=== PATIENT | female | born 1960 | race Two or more races ===

== ENCOUNTER 2021-12-23 18:33 | Emergency (ER) | payer OTHER ==
[~2021-12-23] VITALS: Ht 170.2 cm; Wt 77.1 kg
[2021-12-23] MEDS ORDERED: LIPITOR40 M1 (19:00)
== END 2021-12-23 20:21 | disposition home or self-care (01) ==
LOC: ER 18:33
DX: M70.31 Other bursitis of elbow, right elbow (principal)

== ENCOUNTER 2022-09-02 10:47 | Outpatient (CLI) | payer OTHER ==
[~2022-09-02 10:47] MED LIST: LIPITOR40 M1
== END 2022-09-02 10:49 | disposition home or self-care (01) ==
LOC: LAB 10:47
PROVIDERS: ATTEND Obstetrics & Gynecology
DX: Z01.419 Encounter for gynecological examination (general) (routine) without abnormal findings (principal); Z71.7 Human immunodeficiency virus [HIV] counseling; R30.0 Dysuria; R35.0 Frequency of micturition; N95.2 Postmenopausal atrophic vaginitis; Z12.11 Encounter for screening for malignant neoplasm of colon; Z13.1 Encounter for screening for diabetes mellitus; R53.81 Other malaise; E78.01 Familial hypercholesterolemia; E55.9 Vitamin D deficiency, unspecified

== ENCOUNTER 2023-11-04 10:20 | Outpatient (CLI) | payer OTHER | END 2023-11-04 10:38 | disposition home or self-care (01) | LOC: MAMO-SONO 10:20 | PROVIDERS: ATTEND Obstetrics & Gynecology | DX: N60.12 Diffuse cystic mastopathy of left breast (principal); N60.11 Diffuse cystic mastopathy of right breast ==

== ENCOUNTER 2025-02-28 07:12 | Outpatient (CLI) | payer OTHER | END 2025-02-28 07:22 | disposition home or self-care (01) | LOC: MAMO-SONO 07:12 | PROVIDERS: ATTEND Obstetrics & Gynecology | DX: N60.12 Diffuse cystic mastopathy of left breast (principal); N60.11 Diffuse cystic mastopathy of right breast; Z12.31 Encounter for screening mammogram for malignant neoplasm of breast ==